=== PATIENT | female | born 1965 ===

== ENCOUNTER 2021-04-23 07:58 | Emergency (ER) | payer OTHER ==
--- OUTSIDE RECORDS SUMMARY | 2021-04-23 08:00 | XMS REPORT | Continuity of Care Document ---
:[address] [facility] t Address [address] [place] [address] Care Team Providers Name Role Phone LEONA Attending Clinician Unavailable Payers Payer Name Policy Type Policy Number Effective Date Expiration Date S [place] [facility] [id number] 2018 00:00:00 Problems This patient has no known problems. Allergies, Adverse Reactions, Alerts Allergy Allergy Status Severity Reaction(s) Onset Inactive Treating Comm ents Source Name Type Date Date Clinician No Known DA Active [facility] DA Active [place] [facility] [place] [facility] No Known DA Active [facility] 11[facility]22 [facility] NO KNOWN Drug [facility] Medications This patient has no known medications. Procedures This patient has no known procedures. Encounters Start End Encounter Admission Attending Care Care Encounter Source Date/Time Date/Time Type Type Clinicians Facility Department ID 2020-05-25 2020-05-25 Outpatient [facility] [id number] [facility] 17:20:00 17:20:00 [id number] [facility] 2020-05-25 2020-05-25 Outpatient Rosetta DELGADILLO [facility] [id number] [facility] 17:20:00 17:20:00 [facility]TA[facility]AR [facility] Results Test Description Test Time Test Comments Results Result Comments Source [facility] 2018-12-06 06:33:00 Test Item Value Reference Range Interpretation Comme nts GLUBED (test code = GLUBED) 117 mg/dL 60-125 N
--- NOTE | 2021-04-23 08:53 | RAD REPORT ---
EXAM DESCRIPTION: CT - Head Brain Wo Cont - 04/23/2021 8:44 am CLINICAL HISTORY: BATES'S PALSY COMPARISON: No comparisons TECHNIQUE: All CT scans are performed using dose optimization technique as appropriate and may inclu de automated exposure control or mA/KV adjustment according to patient size. FINDINGS: No intracranial hemorrhage, hydrocephalus or extra-axial fluid collection.No areas of brai n edema or evidence of midline shift. The paranasal sinuses and mastoids are clear. The calvarium is intact. IMPRESSION: No acute intracranial abnormality.
--- NOTE | 2021-04-23 09:02 | ER ---
Nurse's Notes [facility] [place] Name: Melissa Foster Age: 56 yrs Sex: Female : 1965 Arrival Date: 04/23/2021 Time: 07:59 Bed 15 Private MD: Diagnosis: Zapien's palsy Presentation: 04/23 08:04 Chief complaint: Patient states: Noticed yesterday that R eye was not closing all the ss way and that R side of mouth seemed a little droopy. HX of bells Palsy. Coronavirus screen: Client denies travel out of the [place] in the last 14 days. Ebola Screen: Patient denies exposure to infectious person. Patient denies travel to an Ebola-affected area in the 21 days before illness onset. Initial Sepsis Screen: Does the patient meet any 2 criteria? No. Patient's initial sepsis screen is negative. Does the patient have a suspected source of infection? No. Patient's initial sepsis screen is negative. Risk Assessment: Do you want to hurt yourself or someone else? Patient reports no desire to harm self or others. Onset of symptoms was April 22, 2021. 08:04 Method Of Arrival: Ambulatory ss 08:04 Acuity: LM 3 ss Triage Assessment: 08:20 Neuro: Reports numbness in face-r sided paresthesias in face-r sided. mr2 Historical: - Allergies: 08:06 No Known Allergies; ss - Home Meds: 08:06 lansoprazole 15 mg oral cpDR 1 cap once daily [Active]; metoprolol tartrate 100 mg Oral ss tab 1 tab once daily [Active]; montelukast 10 mg oral tab 1 tab once daily [Active]; potassium chloride 8 mEq Oral cpER 1 cap once daily [Active]; triamterene-hydrochlorothiazid 37.5-25 mg Oral cap 1 cap once daily [Active]; celecoxib 200 mg Oral cap 1 cap once daily [Active]; metformin 500 mg Oral tr24 1 tab once daily [Active]; - PMHx: 08:06 Hypertensive disorder; prediabetic; [place] Palsy; ss - PSHx: 08:06 section; ss - Immunization history:: Client reports receiving the 2nd dose of the Covid vaccine. - Social history:: Smoking status: Patient denies any tobacco usage or history of. Screenin:30 Abuse screen: Denies threats or abuse. Denies injuries from another. Nutritional mr2 screening: No deficits noted. Tuberculosis screening: No symptoms or risk factors identified. Fall Risk None identified. Assessment: 08:32 General: Appears in no apparent distress. Behavior is calm, cooperative, appropriate mr2 for age, Smells of. Pain: Denies pain. Neuro: Facial droop on left, Patient reports tingling to right side of her face that started yesterday morning, tingling has not worsen but patient reports trouble with applying lip gloss this morning, hx bells palsy on left side. . Reports numbness in face-r side paresthesias in face-r side. Cardiovascular: No deficits noted. Respiratory: No deficits noted. GI: No deficits noted. : No deficits noted. EENT: No deficits noted. Derm: No deficits noted. Musculoskeletal: No deficits noted. Vital Signs: 08:04 BP 146 / 91; Pulse 82; Resp 16; Temp 98.5(TE); Pulse Ox 98% on R/A; Weight 86.18 kg; ss Height 5 ft. 3 in. (160.02 cm); Pain 0/10; 08:30 BP 111 / 71; Pulse 80; Resp 17; Pulse Ox 96% on R/A; mr2 09:15 BP 128 / 70; Pulse 64; Resp 17 S; Pulse Ox 98% on R/A; mr2 08:04 Body Mass Index 33.66 (86.18 kg, 160.02 cm) ED Course: 07:59 Patient arrived in ED. am2 08:06 Triage completed. ss 08:06 Arm band placed on right wrist. ss 08:12 Chuckie Lee NP is PHCP. pm1 08:12 Tobias Rivera MD is Attending Physician. pm1 08:20 Patient has correct armband on for positive identification. Bed in low position. Call mr2 light in reach. 08:22 Jason José, SIMIN is Primary Nurse. mr2 08:44 CT Head Brain wo Cont In Process Unspecified. EDMS 09:01 Kevyn Kang MD is Referral Physician. pm1 09:30 No provider procedures requiring assistance completed. mr2 09:30 Patient did not have IV access during this emergency room visit. mr2 Administered Medications: 09:20 Drug: Decadron (dexamethasone) 10 mg Route: IM; Site: right deltoid; mr2 09:30 Follow up: Response: Medication administered at discharge. mr2 Outcome: 09:02 Discharge ordered by . pm1 09:30 Discharged to home ambulatory. mr2 09:30 Condition: good 09:30 Discharge instructions given to patient, significant other, Instructed on discharge instructions, follow up and referral plans. Demonstrated understanding of instructions, follow-up care, medications, Prescriptions given X 1. 09:31 Patient left the ED. mr2 Signatures: Dispatcher [employer] EDMS Nidhi Rose, RN RN ss Chuckie Lee NP CUFF TURNER pm1 Radha Medina am2 Jason José RN RN mr2
--- NOTE | 2021-04-23 09:03 | EDPHYS ---
Physician Documentation [facility] Name: Melissa Foster Age: 56 yrs Sex: Female : 1965 Arrival Date: 04/23/2021 Time: 07:59 Bed 15 Private MD: ED Physician Tobias Rivera HPI: 04/23 08:29 This 56 yrs old Female presents to ER via Ambulatory with complaints of tingling in pm1 face, Eye Problem - dryness. 08:29 The patient presents to the emergency department with tingling to right side of face pm1 and right eye dryness. Onset: The symptoms/episode began/occurred 2 day(s) ago. Context: occurred at an unknown location. Associated signs and symptoms: Pertinent negatives: fever, headache, weakness, focal weakness, vision change. Severity of symptoms: in the emergency department the symptoms are unchanged. The patient has experienced a previous episode, approximately 12 years ago, Zapien's palsy to left-sided face. The patient has been recently seen by a physician: yesterday, For same complaints and patient was instructed to take an aspirin daily. No tests performed. Historical: - Allergies: 08:06 No Known Allergies; ss - Home Meds: 08:06 lansoprazole 15 mg oral cpDR 1 cap once daily [Active]; metoprolol tartrate 100 mg Oral ss tab 1 tab once daily [Active]; montelukast 10 mg oral tab 1 tab once daily [Active]; potassium chloride 8 mEq Oral cpER 1 cap once daily [Active]; triamterene-hydrochlorothiazid 37.5-25 mg Oral cap 1 cap once daily [Active]; celecoxib 200 mg Oral cap 1 cap once daily [Active]; metformin 500 mg Oral tr24 1 tab once daily [Active]; - PMHx: 08:06 Hypertensive disorder; prediabetic; [place] Palsy; ss - PSHx: 08:06 section; ss - Immunization history:: Client reports receiving the 2nd dose of the Covid vaccine. - Social history:: Smoking status: Patient denies any tobacco usage or history of. ROS: 08:29 Constitutional: Negative for fever, chills, and weight loss. pm1 08:29 ENT: Negative for injury, pain, and discharge, Neck: Negative for injury, pain, and swelling, Cardiovascular: Negative for chest pain, palpitations, and edema, Respiratory: Negative for shortness of breath, cough, wheezing, and pleuritic chest pain, Abdomen/GI: Negative for abdominal pain, nausea, vomiting, diarrhea, and constipation, MS/Extremity: Negative for injury and deformity, Skin: Negative for injury, rash, and discoloration. 08:29 Eyes: Positive for Right dry eye and decreased blinking, Negative for pain, visual disturbance. 08:29 Neuro: Negative for headache, numbness, tingling, weakness. 08:29 All other systems are negative. Exam: 08:29 Constitutional: This is a well developed, well nourished patient who is awake, alert, pm1 and in no acute distress. Head/Face: Normocephalic, atraumatic. 08:29 Back: No spinal tenderness. No costovertebral tenderness. Full range of motion. Skin: Warm, dry with normal turgor. Normal color with no rashes, no lesions, and no evidence of cellulitis. MS/ Extremity: Pulses equal, no cyanosis. Neurovascular intact. Full, normal range of motion. 08:29 Eyes: Extraocular movements: intact throughout, Conjunctiva: no acute changes, no injection, Sclera: no acute changes, icterus, is not appreciated. 08:29 ENT: Exam is negative for acute changes, Mouth: no acute changes, Lips: normal, moist, Oral mucosa: normal, pink and intact, moist. 08:29 Cardiovascular: Exam negative for acute changes, Rate: normal, Rhythm: regular, Pulses: no pulse deficits are appreciated, Heart sounds: normal. 08:29 Respiratory: Exam negative for acute changes, respiratory distress, shortness of breath, Breath sounds: are clear throughout. 08:29 Abdomen/GI: Inspection: obese Palpation: abdomen is soft and non-tender, in all quadrants. 08:29 Neuro: Orientation: is normal, Mentation: is normal, Cranial nerves: CN II- XII are normal as tested, Right-sided forehead sparing with elevation of bilateral eyebrows. Decreased ability to keep right eyelids closed. Negative for decreased sensation to face. Cerebellar function: normal finger to nose testing, Motor: moves all fours, strength is 5/5 in all extremities, Sensation: is normal, no obvious gross deficits. Vital Signs: 08:04 BP 146 / 91; Pulse 82; Resp 16; Temp 98.5(TE); Pulse Ox 98% on R/A; Weight 86.18 kg; ss Height 5 ft. 3 in. (160.02 cm); Pain 0/10; 08:30 BP 111 / 71; Pulse 80; Resp 17; Pulse Ox 96% on R/A; mr2 09:15 BP 128 / 70; Pulse 64; Resp 17 S; Pulse Ox 98% on R/A; mr2 08:04 Body Mass Index 33.66 (86.18 kg, 160.02 cm) ss MDM: 08:26 Patient medically screened. pm1 08:27 Data reviewed: vital signs. Data interpreted: Pulse oximetry: on room air is 98 %. pm1 Interpretation: normal. 09:01 Counseling: I had a detailed discussion with the patient and/or guardian regarding: the pm1 historical points, exam findings, and any diagnostic results supporting the discharge/admit diagnosis, radiology results, the need for outpatient follow up, a neurologist, to return to the emergency department if symptoms worsen or persist or if there are any questions or concerns that arise at home. 04/23 08:27 Order name: CT Head Brain wo Cont; Complete Time: 08:56 pm1 Administered Medications: 09:20 Drug: Decadron (dexamethasone) 10 mg Route: IM; Site: right deltoid; mr2 09:30 Follow up: Response: Medication administered at discharge. mr2 Disposition: 04/24 07:10 Co-signature as Attending Physician, Tobias Rivera MD. ma2 Disposition Summary: 04/23/21 09:02 Discharge Ordered Location: Home pm1 Problem: new pm1 Symptoms: have improved pm1 Condition: Stable pm1 Diagnosis - Zapien's palsy pm1 Followup: pm1 - With: Kevyn Kang MD - When: 2 - 3 days - Reason: Recheck today's complaints, Continuance of care, Re-evaluation by your physician Discharge Instructions: - Discharge Summary Sheet pm1 - Zapien Palsy, Adult pm1 Forms: - Medication Reconciliation Form pm1 - Thank You Letter pm1 - Antibiotic Education pm1 - Prescription Opioid Use pm1 Prescriptions: - prednisone 10 mg Oral tablet - take 1 tablet by ORAL route as directed Take 6 tablets orally once daily for 5 pm1 days; then 4 tablets orally once daily for 2 days, then 2 tablets orally once daily for 2 days, then 1 tablet orally once daily for 2 days; 43 tablet; Refills: 0, Product Selection Permitted Signatures: Dispatcher [employer] Nidhi Agustin, RN RN ss Chuckie Lee, [employer]E [employer]MIN pm1 Tobias Rivera MD MD ma2 Jason José RN RN mr2
[2021-04-23] MEDS ORDERED: dexAMETHasone 10 MG/ML VIAL ONE (09:19)
[2021-04-23 09:41] VITALS: TEMP 98.5
[2021-04-23 09:45] VITALS: BP 128/70; O2SAT 98
== END 2021-04-23 09:31 | disposition home or self-care (01) ==
LOC: ER 07:58
DX: G51.0 Bell's palsy (principal)
CPT/HCPCS: 70450; 96372; 99283; J1100